=== PATIENT | male | born 1960 | race Caucasian/White ===

== ENCOUNTER 2020-10-13 18:22 | Observation (INO) | payer SELFPAY ==
[2020-10-13] MEDS ORDERED: Ondansetron PF 4 MG/2 ML Vial ONE (20:29)
[2020-10-13] MEDS ORDERED: Morphine 4 MG/ML VIAL ONE (20:29)
[2020-10-13] MEDS ORDERED: Ketorolac Tromethamine 30 MG/ML VIAL ONE (20:29)
[2020-10-13 20:56] LABS: Hemoglobin 13.7 g/dL (14.0-18.0); Mean Corpuscular Hemoglobin 31.3 pg (27.0-31.0); Mean Corpuscular Volume 89.5 fL (78.0-98.0); Platelet Count 233 thou/uL (130-400); RBC Distribution Width 12.8 % (11.5-14.5); Red Blood Cell (RBC) Count 4.38 mill/uL (4.70-6.10); White Blood Cell (WBC) Count 8.5 thou/uL (4.8-10.8)
[2020-10-13 21:16] LABS: ALT (SGPT) 58 U/L (8-55); AST (SGOT) 35 U/L (5-34); Albumin 3.8 g/dL (3.4-4.8); Alkaline Phosphatase 106 U/L (40-110); Anion Gap 12 mmol/L (10-20); BUN (Urea Nitrogen) 13 mg/dL (8.4-25.7); Bilirubin, Total 0.3 mg/dL (0.2-1.2); Calc. Creatinine Clearance 0 mL/min (70-130); Calcium 9.5 mg/dL (7.8-10.44); Carbon Dioxide 26 mmol/L (23-31); Chloride 104 mmol/L (98-107); Globulin 3.5 g/dL (2.4-3.5); Glucose 118 mg/dL (80-115); Lipase 27 U/L (8-78); Potassium 3.9 mmol/L (3.5-5.1); Protein, Total 7.3 g/dL (5.8-8.1); Sodium 138 mmol/L (136-145)
[2020-10-13 21:17] LABS: Eosinophils 7 % (0-10); Lymphocytes 48 % (21-51); MDiff Complete? YES; Monocytes 5 % (0-10); Neutrophil 40 % (42-75); Platelet Morphology Comment Appears Adequate
[2020-10-13] MEDS ORDERED: methylPREDNISolone Sod Succ/PF 125 MG/2 ML VIAL ONE (23:49)
[2020-10-14] MEDS ORDERED: Calcium Carbonate 500 MG ChewTAB PO PRN (02:41)
[2020-10-14] MEDS ORDERED: Ondansetron PF 4 MG/2 ML Vial IVP PRN (02:41)
[2020-10-14] MEDS ORDERED: Cyclobenzaprine 10 MG TAB PO PRN (02:51)
[2020-10-14] MEDS ORDERED: Nicotine 21 MG PATCH TD SCH (03:00)
[2020-10-14] MEDS ORDERED: Ketorolac Tromethamine 30 MG/ML VIAL IVP PRN (03:02)
[2020-10-14 04:37] VITALS: BMI 29.0
[2020-10-14] MEDS: HYDROcodone/Acetaminophen 7.5/325 mg Tablet PO PRN ×2 (04:41→10:12)
[2020-10-14 06:33] LABS: #Lymphocytes 1.3 thou/uL (1.20-3.40); #Monocytes 0.1 thou/uL (0.11-0.59); #Neutrophils 4.9 thou/uL (1.40-6.50); %Basophils 0.5 % (0.0-1.0); %Eosinophils 0.4 % (0.0-10.0); %Lymphocytes 20.5 % (21.0-51.0); %Neutrophils 77.5 % (42.0-75.0); Hemoglobin 14.2 g/dL (14.0-18.0); Mean Corpuscular HGB CONC 35.1 g/dL (32.0-36.0); Mean Corpuscular Hemoglobin 31.7 pg (27.0-31.0); Mean Corpuscular Volume 90.2 fL (78.0-98.0); Mean Platelet Volume 7.1 fL (7.4-10.4); Platelet Count 225 thou/uL (130-400); RBC Distribution Width 12.7 % (11.5-14.5); Red Blood Cell (RBC) Count 4.48 mill/uL (4.70-6.10); White Blood Cell (WBC) Count 6.3 thou/uL (4.8-10.8)
[2020-10-14 06:55] LABS: Anion Gap 12 mmol/L (10-20); BUN (Urea Nitrogen) 15 mg/dL (8.4-25.7); Calc. Creatinine Clearance 88 mL/min (70-130); Calcium 9.2 mg/dL (7.8-10.44); Carbon Dioxide 25 mmol/L (23-31); Chloride 102 mmol/L (98-107); Glucose 226 mg/dL (80-115); Potassium 4.4 mmol/L (3.5-5.1); Sodium 135 mmol/L (136-145)
[2020-10-14] MEDS ORDERED: Lidocaine 5% Patch TD SCH (09:00)
[2020-10-14] MEDS ORDERED: Famotidine 20 MG TAB PO SCH (09:00)
[2020-10-14] MEDS ORDERED: predniSONE 20 MG TAB PO SCH (09:15)
[2020-10-14 15:21] VITALS: BP 148/72; TEMP 98
[2020-10-14 17:11] LABS: SARS-CoV-2 PCR by NAA Not Detected (NotDetected)
[2020-10-14] MEDS ORDERED: Transdermal Patch Removal TOP SCH (21:00)
[2020-10-15] MEDS ORDERED: predniSONE 20 MG TAB PO SCH (08:00)
== END 2020-10-14 17:17 | disposition home or self-care (01) ==
LOC: ERS 18:22 → ERHOLD 10-14 00:05 → T4-A 10-14 04:14
PROVIDERS: ADMIT Student in an Organized Health Care Education/Training Program; ATTEND Internal Medicine
DX: M48.061 Spinal stenosis, lumbar region without neurogenic claudication (principal); M48.07 Spinal stenosis, lumbosacral region; F17.210 Nicotine dependence, cigarettes, uncomplicated; R14.2 Eructation; Z20.822 Contact with and (suspected) exposure to COVID-19; Z88.0 Allergy status to penicillin; Z79.899 Other long term (current) drug therapy
CPT/HCPCS: 36415; 72131; 72192; 80048; 80053; 83690; 85025; 96374; 96375; G0378; J1885; J2270; J2405; J2930; J7512; U0003; U0005

== ENCOUNTER 2020-11-10 13:18 | Inpatient (IN) | payer SELFPAY ==
[2020-11-10] MEDS ORDERED: Ketorolac Tromethamine 30 MG/ML VIAL ONE (14:09)
[2020-11-10] MEDS ORDERED: Ondansetron PF 4 MG/2 ML Vial ONE (14:09)
[2020-11-10] MEDS ORDERED: Morphine 4 MG/ML VIAL ONE ×2 (14:09→17:18)
[2020-11-10 17:17] LABS: #Eosinphils 0.1 thou/uL (0.0-0.7); #Lymphocytes 1.9 thou/uL (1.20-3.40); #Monocytes 0.3 thou/uL (0.11-0.59); #Neutrophils 2.1 thou/uL (1.40-6.50); %Basophils 0.7 % (0.0-1.0); %Eosinophils 2.3 % (0.0-10.0); %Lymphocytes 42.4 % (21.0-51.0); %Monocytes 7.5 % (0.0-10.0); %Neutrophils 47.1 % (42.0-75.0); Hemoglobin 14.3 g/dL (14.0-18.0); Mean Corpuscular HGB CONC 34.8 g/dL (32.0-36.0); Mean Corpuscular Hemoglobin 31.3 pg (27.0-31.0); Mean Corpuscular Volume 90.1 fL (78.0-98.0); Mean Platelet Volume 7.1 fL (7.4-10.4); Platelet Count 173 thou/uL (130-400); RBC Distribution Width 12.8 % (11.5-14.5); Red Blood Cell (RBC) Count 4.56 mill/uL (4.70-6.10); White Blood Cell (WBC) Count 4.4 thou/uL (4.8-10.8)
[2020-11-10 17:24] LABS: PTT 31.8 sec (22.9-36.1); Prothrombin Time 13.1 sec (12.0-14.7)
[2020-11-10 17:38] LABS: ALT (SGPT) 79 U/L (8-55); AST (SGOT) 58 U/L (5-34); Albumin 3.7 g/dL (3.4-4.8); Alkaline Phosphatase 100 U/L (40-110); Anion Gap 12 mmol/L (10-20); BUN (Urea Nitrogen) 17 mg/dL (8.4-25.7); Bilirubin, Total 0.3 mg/dL (0.2-1.2); CRP (Inflammatory) 2.61 mg/dL (= or < 0.5); Calc. Creatinine Clearance 0 mL/min (70-130); Calcium 9.1 mg/dL (7.8-10.44); Carbon Dioxide 26 mmol/L (23-31); Chloride 102 mmol/L (98-107); Globulin 3.7 g/dL (2.4-3.5); Glucose 123 mg/dL (80-115); Protein, Total 7.4 g/dL (5.8-8.1); Sodium 136 mmol/L (136-145)
[2020-11-10] MEDS ORDERED: Morphine 2 MG/ML VIAL SLOW IVP PRN (19:11)
[2020-11-10] MEDS ORDERED: Cyclobenzaprine 10 MG TAB PO PRN (19:16)
[2020-11-10 20:41] LABS: SARS-CoV-2 NAA Rapid Test DETECTED (NotDetected)
[2020-11-10] MEDS: Famotidine 20 MG TAB PO SCH (21:34)
[2020-11-10 22:09] VITALS: BMI 28.1
[2020-11-10] MEDS: Morphine 2 MG/ML VIAL SLOW IVP PRN (23:20)
[2020-11-10] MEDS ORDERED: Guaifenesin DM 100-10/5 ML UDCUP PO PRN (23:20)
[2020-11-10] MEDS ORDERED: Ketorolac Tromethamine 30 MG/ML VIAL IVP SCH (23:59)
[2020-11-11] MEDS ORDERED: Acetaminophen 325 MG TAB PO PRN (05:19)
[2020-11-11] MEDS: Famotidine 20 MG TAB PO SCH ×2 (08:21→20:35)
[2020-11-11] MEDS ORDERED: Methocarbamol 500 MG TAB PO PRN (09:00)
[2020-11-11] MEDS ORDERED: HYDROcodone/Acetaminophen 5/325 mg Tablet PO PRN (09:00)
[2020-11-11] MEDS: Morphine 2 MG/ML VIAL SLOW IVP PRN (11:16)
[2020-11-11] MEDS ORDERED: Sodium Chloride 0.9% 1,000 ML IV SCH (11:45)
[2020-11-11] MEDS: Nicotine 14 MG PATCH TOP SCH ×2 (13:01→13:44)
[2020-11-11 14:36] LABS: Ferritin 546.52 ng/mL (22-322)
[2020-11-11 14:37] LABS: Vitamin D, 25 Hydroxy 34.8 ng/ml (> 30.0)
[2020-11-11] MEDS ORDERED: Midazolam HCl 2 mg/2 ml Vial ONE (14:51)
[2020-11-11] MEDS ORDERED: Fentanyl 100 MCG/2 ML VIAL ONE (14:52)
[2020-11-11] MEDS ORDERED: Ondansetron PF 4 MG/2 ML Vial ONE (15:31)
[2020-11-11] MEDS ORDERED: Succinylcholine 200 MG/10 ml SYRINGE FS ONE (15:31)
[2020-11-11] MEDS ORDERED: PROPOFOL 200 MG/20 ML VIAL ONE (15:31)
[2020-11-11] MEDS ORDERED: Dexamethasone 20 MG/5 ML VIAL ONE (15:31)
[2020-11-11] MEDS ORDERED: Lidocaine 1% PF 5 ML VIAL ONE (15:31)
[2020-11-11] MEDS ORDERED: Rocuronium Bromide 10 MG/ML (10ML VIAL) ONE (15:31)
[2020-11-11] MEDS ORDERED: PHENYLEPHRINE-NS 100 MCG/ML 10 ML SYRINGE ONE ×2 (15:31→17:03)
[2020-11-11] MEDS ORDERED: Clindamycin/D5W 900 mg/50 ml Premix Bag ONE (15:45)
[2020-11-11] MEDS ORDERED: Morphine 4 MG/ML VIAL SLOW IVP PRN (16:56)
[2020-11-11] MEDS ORDERED: Ondansetron PF 4 MG/2 ML Vial IVP PRN (16:56)
[2020-11-11] MEDS ORDERED: HYDROcodone/Acetaminophen 10/325 mg Tablet PO PRN ×2 (16:56)
[2020-11-11] MEDS ORDERED: SUGAMMADEX SODIUM 200 MG/2 ML VIAL ONE (17:03)
[2020-11-11] MEDS ORDERED: HYDROmorphone 2 MG/ML VIAL SLOW IVP PRN (17:15)
[2020-11-11] MEDS ORDERED: Ondansetron HCl/PF 4 MG/2 ML Vial IVP PRN (17:15)
[2020-11-11] MEDS ORDERED: Promethazine HCl 25 MG/ML VIAL IM PRN (17:15)
[2020-11-11] MEDS ORDERED: PACU-Morphine 4MG/ML VIAL SLOW IVP PRN (17:15)
[2020-11-11] MEDS ORDERED: Promethazine HCl 25 MG/ML VIAL IVPB PRN (17:15)
[2020-11-11] MEDS ORDERED: Morphine Sulfate 2 MG/ML SYRINGE SLOW IVP PRN (17:15)
[2020-11-11] MEDS: Ketorolac Tromethamine 30 MG/ML VIAL IVP SCH (19:29)
[2020-11-11] MEDS: Aspirin 81 mg Enteric Coated Tablet PO SCH (20:35)
[2020-11-12] MEDS: Clindamycin/D5W 900 MG in Premix Bag 1 BAG IVPB SCH ×2 (00:08→05:55)
[2020-11-12] MEDS: Ketorolac Tromethamine 30 MG/ML VIAL IVP SCH ×5 (00:08→23:53)
[2020-11-12 05:50] LABS: #Lymphocytes 0.7 thou/uL (1.20-3.40); #Monocytes 0.1 thou/uL (0.11-0.59); #Neutrophils 5.5 thou/uL (1.40-6.50); %Eosinophils 0.1 % (0.0-10.0); %Lymphocytes 10.7 % (21.0-51.0); %Monocytes 1.5 % (0.0-10.0); %Neutrophils 87.7 % (42.0-75.0); Hemoglobin 11.4 g/dL (14.0-18.0); Mean Corpuscular HGB CONC 30.3 g/dL (32.0-36.0); Mean Corpuscular Hemoglobin 27.5 pg (27.0-31.0); Mean Corpuscular Volume 90.9 fL (78.0-98.0); Mean Platelet Volume 7.4 fL (7.4-10.4); Platelet Count 132 thou/uL (130-400); RBC Distribution Width 12.7 % (11.5-14.5); Red Blood Cell (RBC) Count 4.14 mill/uL (4.70-6.10); White Blood Cell (WBC) Count 6.3 thou/uL (4.8-10.8)
[2020-11-12 06:20] LABS: Anion Gap 11 mmol/L (10-20); BUN (Urea Nitrogen) 18 mg/dL (8.4-25.7); Calc. Creatinine Clearance 93 mL/min (70-130); Calcium 8.5 mg/dL (7.8-10.44); Carbon Dioxide 27 mmol/L (23-31); Chloride 101 mmol/L (98-107); Glucose 186 mg/dL (80-115); Sodium 134 mmol/L (136-145)
[2020-11-12] MEDS: Zinc Sulfate 220 MG CAP PO SCH (09:23)
[2020-11-12] MEDS: Aspirin 81 mg Enteric Coated Tablet PO SCH ×2 (09:23→20:10)
[2020-11-12] MEDS: Ascorbic Acid 500 mg Chewable Tablet PO SCH (09:23)
[2020-11-12] MEDS: Cholecalciferol (Vitamin D3) 400 UNITS TAB PO SCH (09:23)
[2020-11-12] MEDS: Famotidine 20 MG TAB PO SCH ×2 (09:23→20:09)
[2020-11-12] MEDS: Nicotine 14 MG PATCH TOP SCH (11:56)
[2020-11-13 05:52] LABS: #Lymphocytes 0.8 thou/uL (1.20-3.40); #Monocytes 0.4 thou/uL (0.11-0.59); #Neutrophils 7.4 thou/uL (1.40-6.50); %Basophils 0.4 % (0.0-1.0); %Eosinophils 0.1 % (0.0-10.0); %Lymphocytes 9.3 % (21.0-51.0); %Monocytes 4.5 % (0.0-10.0); %Neutrophils 85.7 % (42.0-75.0); Hemoglobin 10.4 g/dL (14.0-18.0); Mean Corpuscular HGB CONC 33.4 g/dL (32.0-36.0); Mean Corpuscular Hemoglobin 29.9 pg (27.0-31.0); Mean Corpuscular Volume 89.6 fL (78.0-98.0); Mean Platelet Volume 7.6 fL (7.4-10.4); Platelet Count 141 thou/uL (130-400); RBC Distribution Width 12.6 % (11.5-14.5); Red Blood Cell (RBC) Count 3.49 mill/uL (4.70-6.10); White Blood Cell (WBC) Count 8.6 thou/uL (4.8-10.8)
[2020-11-13] MEDS: Ketorolac Tromethamine 30 MG/ML VIAL IVP SCH ×3 (05:55→17:30)
[2020-11-13 06:16] LABS: Anion Gap 11 mmol/L (10-20); BUN (Urea Nitrogen) 25 mg/dL (8.4-25.7); Calc. Creatinine Clearance 90 mL/min (70-130); Calcium 8.4 mg/dL (7.8-10.44); Carbon Dioxide 25 mmol/L (23-31); Chloride 104 mmol/L (98-107); Glucose 167 mg/dL (80-115); Potassium 4.6 mmol/L (3.5-5.1); Sodium 135 mmol/L (136-145)
[2020-11-13] MEDS: Ascorbic Acid 500 mg Chewable Tablet PO SCH (08:35)
[2020-11-13] MEDS: Cholecalciferol (Vitamin D3) 400 UNITS TAB PO SCH (08:35)
[2020-11-13] MEDS: Aspirin 81 mg Enteric Coated Tablet PO SCH ×2 (08:35→20:22)
[2020-11-13] MEDS: Zinc Sulfate 220 MG CAP PO SCH (08:37)
[2020-11-13] MEDS: Famotidine 20 MG TAB PO SCH ×2 (08:37→20:22)
[2020-11-13] MEDS: Nicotine 14 MG PATCH TOP SCH (12:10)
[2020-11-13] MEDS: Acetaminophen 500 MG TAB PO PRN (17:36)
[2020-11-14 07:07] LABS: #Lymphocytes 1.3 thou/uL (1.20-3.40); #Monocytes 0.2 thou/uL (0.11-0.59); #Neutrophils 3.9 thou/uL (1.40-6.50); %Basophils 0.2 % (0.0-1.0); %Eosinophils 0.1 % (0.0-10.0); %Lymphocytes 24.2 % (21.0-51.0); %Monocytes 4.4 % (0.0-10.0); %Neutrophils 71.1 % (42.0-75.0); Anion Gap 12 mmol/L (10-20); BUN (Urea Nitrogen) 15 mg/dL (8.4-25.7); Calc. Creatinine Clearance 104 mL/min (70-130); Calcium 8.1 mg/dL (7.8-10.44); Carbon Dioxide 24 mmol/L (23-31); Chloride 102 mmol/L (98-107); Glucose 94 mg/dL (80-115); Hemoglobin 10.5 g/dL (14.0-18.0); Mean Corpuscular HGB CONC 34.9 g/dL (32.0-36.0); Mean Corpuscular Hemoglobin 31.2 pg (27.0-31.0); Mean Corpuscular Volume 89.3 fL (78.0-98.0); Mean Platelet Volume 7.5 fL (7.4-10.4); Platelet Count 149 thou/uL (130-400); Potassium 3.9 mmol/L (3.5-5.1); Red Blood Cell (RBC) Count 3.36 mill/uL (4.70-6.10); Sodium 134 mmol/L (136-145); White Blood Cell (WBC) Count 5.4 thou/uL (4.8-10.8)
[2020-11-14] MEDS: Aspirin 81 mg Enteric Coated Tablet PO SCH ×2 (08:42→20:37)
[2020-11-14] MEDS: Famotidine 20 MG TAB PO SCH ×2 (08:42→20:37)
[2020-11-14] MEDS: Zinc Sulfate 220 MG CAP PO SCH (08:42)
[2020-11-14] MEDS: Cholecalciferol (Vitamin D3) 400 UNITS TAB PO SCH (08:42)
[2020-11-14] MEDS: Ascorbic Acid 500 mg Chewable Tablet PO SCH (08:42)
[2020-11-14] MEDS: Nicotine 14 MG PATCH TOP SCH (13:35)
[2020-11-14] MEDS: Acetaminophen 500 MG TAB PO PRN (17:28)
[2020-11-15 07:10] LABS: Anion Gap 11 mmol/L (10-20); BUN (Urea Nitrogen) 11 mg/dL (8.4-25.7); Calc. Creatinine Clearance 112 mL/min (70-130); Calcium 8.8 mg/dL (7.8-10.44); Carbon Dioxide 27 mmol/L (23-31); Chloride 100 mmol/L (98-107); Glucose 91 mg/dL (80-115); Potassium 4.3 mmol/L (3.5-5.1); Sodium 134 mmol/L (136-145)
[2020-11-15] MEDS: Aspirin 81 mg Enteric Coated Tablet PO SCH (08:03)
[2020-11-15] MEDS: Ascorbic Acid 500 mg Chewable Tablet PO SCH (08:03)
[2020-11-15] MEDS: Famotidine 20 MG TAB PO SCH (08:03)
[2020-11-15] MEDS: Cholecalciferol (Vitamin D3) 400 UNITS TAB PO SCH (08:03)
[2020-11-15] MEDS: Zinc Sulfate 220 MG CAP PO SCH (08:03)
[2020-11-15 08:10] LABS: Band 2 % (5-11); Hemoglobin 11.5 g/dL (14.0-18.0); Lymphocytes 34 % (21-51); MDiff Complete? YES; Mean Corpuscular HGB CONC 34.3 g/dL (32.0-36.0); Mean Corpuscular Hemoglobin 30.9 pg (27.0-31.0); Mean Corpuscular Volume 89.9 fL (78.0-98.0); Mean Platelet Volume 6.7 fL (7.4-10.4); Monocytes 5 % (0-10); Neutrophil 52 % (42-75); Platelet Count 179 thou/uL (130-400); Platelet Morphology Comment Appears Adequate; Polychromasia SLIGHT = 2-3 cells (100X) (0-2/hpf); Reactive Lymphocytes 7 % (0-10); Red Blood Cell (RBC) Count 3.72 mill/uL (4.70-6.10); White Blood Cell (WBC) Count 4.5 thou/uL (4.8-10.8)
[2020-11-15] MEDS: Nicotine 14 MG PATCH TOP SCH (12:40)
[2020-11-15 14:58] LABS: Bacteria/HPF None Seen HPF (None Seen); Bilirubin Negative (Negative); Blood, Urine Negative (Negative); Clarity Clear (Clear); Glucose, Urine (Dipstick) Normal (Negative); Ketone, Urine Negative (Negative); Leukocyte Negative Leu/uL (Negative); Nitrite Negative (Negative); Protein, Urine (Dipstick) 30 mg/dL (Neg-Trace); RBC/HPF 0-3 HPF (0-3); Specific Gravity, Urine 1.023 (1.002-1.036); Squamous Epithelial 0-3 HPF (0-3); WBC/HPF 0-3 HPF (0-3); pH, Urine 6.5 (5.0-9.0)
[2020-11-15 15:01] LABS: Urine Culture Reflex No No
[2020-11-15 17:18] VITALS: BP 142/80
[2020-11-15] MEDS: Acetaminophen 500 MG TAB PO PRN (17:23)
[2020-11-15 18:11] VITALS: TEMP 100.6
== END 2020-11-15 18:14 | disposition home or self-care (01) | DRG 469 ==
LOC: ERS 13:18 → SJJU 17:01 → T4-A 23:07
PROVIDERS: ADMIT Internal Medicine; ATTEND Internal Medicine
PROC: 0SRS0JZ Replacement of Left Hip Joint, Femoral Surface with Synthetic Substitute, Open Approach (ICD-10-PCS; principal; 2020-11-11)
DX: M87.852 Other osteonecrosis, left femur (principal); U07.1 COVID-19; F17.210 Nicotine dependence, cigarettes, uncomplicated; M54.16 Radiculopathy, lumbar region; M54.5 Low back pain; F12.10 Cannabis abuse, uncomplicated; G89.29 Other chronic pain; R74.01 Elevation of levels of liver transaminase levels; N18.2 Chronic kidney disease, stage 2 (mild); Z88.0 Allergy status to penicillin; Z71.6 Tobacco abuse counseling; Z71.51 Drug abuse counseling and surveillance of drug abuser
CPT/HCPCS: 36415; 71045; 72131; 72148; 72192; 72195; 80048; 80053; 81001; 82306; 82550; 82728; 83970; 84443; 85025; 85610; 85652; 85730; 86140; 87040; 93005; 96374; 96375; 96376; J1100; J1885; J2250; J2270; J2405; J2704; J3010; J3490; U0002; U0005